=== PATIENT | female | born 1950 | race Asian ===

== ENCOUNTER 2020-01-29 12:20 | Emergency (ER) | payer MEDICARE ==
[2020-01-29] MEDS ORDERED: Sodium Chloride 0.9% 10 ML Syringe FLUSH PRN (12:45)
--- NOTE | 2020-01-29 12:45 | EDM.PDOC ---
ED HPI GENERAL MEDICAL PROBLEM - General Chief Complaint: Respiratory Problem Stated Complaint: [facility] Time Seen by Provider: 01/29/20 12:40 Source of Information: Reports: Patient History Limitations: Reports: No Limitations, Language Barrier (Some mild language barrier. Patient is of [place] or [place] descent and has a hard time understanding Setswana. She also appears to be moderately hearing impaired.) - History of Present Illness INITIAL COMMENTS - FREE TEXT/NARRATIVE: 69-year-old female presents to the ED per [place] [facility]. The history primarily provided by the cage maker machine. Patient apparently was outside of [facility] in her vehicle when she is developed sudden onset of severe dyspnea. She called for help from [facility] and they called the ambulance. Paramedics identified her O2 sats were only 57% upon their arrival but the patient is very cool extremities. She was placed on CPAP at 12 mm of PEEP. He was changed to BiPAP in the ED by triage nurse. She is satting at 98 --100% she does have decreased air entry to both lower lung lo but good air entry to both anterior upper lobes no evidence clinically of a pneumothorax. Few crackles appreciated in the left lung base. She has a bit of a bowl neck and therefore no obvious JVD. Patient is alert and able to speak through her mask. Pressure initially is elevated at 211/71. We will monitor this before aggressively treating. Questioning whether she may be acute pulmonary edema. She has no fever to suggest COVID illness. She apparently felt well up until this morning. She will be given Lasix 40 mg IV bolus. Routine labs chest x-ray and ECG to be done. Will include a COVID screen. Onset: Today, Sudden Onset Date: 01/29/20 Onset Time: 10:00 Duration: Minutes:, Getting Worse Location: Reports: Chest (Severe inability to breathe. Significant air hunger reported by paramedics upon arrival.) Quality: Reports: Other (Dyspnea of) Severity: Severe (acute onset) Improves with: Reports: Other (Improved with oxygen and CPAP machine was started in the ambulance.) Worsens with: Reports: Movement Context: Reports: Other. Denies: Activity, Exercise, Lifting, Sick Contact, Trauma Associated Symptoms: Reports: Cough, Loss of Appetite, Malaise, Shortness of Breath, Weakness. Denies: Confusion (Cute onset while sitting in her car at the [facility] this morning.), Chest Pain, cough w sputum (Dry hacking cough.), Diaphoresis, Fever/Chills, Headaches, Nausea/Vomiting, Rash, Seizure, Syncope Treatments BLOCKER AND SEWER: Reports: Other (see below) (No extra medications.) - Related Data Allergies Allergy/AdvReac Type Severity Reaction Status Date / Time No Known Allergies Allergy Verified 01/29/20 12:28 Past Medical History Cardiovascular History: Reports: Heart Failure (Diastolic congestive heart failure ejection fraction is 45% on last evaluation 09/11/2019 in [facility]. Her echocardiogram revealed an improvement in ejection fraction to 55% of the time of discharge after diuresis 09/11/2019), Hypertension, VT Genitourinary History: Reports: Chronic Renal Insuffiency, UTI, Recurrent Musculoskeletal History: Reports: Osteoarthritis Social & Family History - Living Situation & Occupation Living situation: Reports: Occupation: Retired ED ROS GENERAL - Review of Systems Review Of Systems: See Below Constitutional: Reports: Malaise, Weakness, Fatigue, Decreased Appetite. Denies: Fever, Chills, Weight Loss HEENT: Reports: Glasses Respiratory: Reports: Shortness of Breath, Cough. Denies: Wheezing, Pleuritic Chest Pain, Sputum, Hemoptysis (Nonproductive) Cardiovascular: Reports: Blood Pressure Problem, Dyspnea on Exertion (Always has a little bit of edema around the ankles.), Edema, Palpitations. Denies: Chest Pain, Claudication (Neck severe hypertension primarily systolic), Lightheadedness, Orthopnea Endocrine: Reports: Fatigue (Occasional palpitations) GI/Abdominal: Reports: Constipation : Reports: Frequency (Problems with constipation.), Incontinence, Urgency, Other (GEN stress components.) Musculoskeletal: Reports: Joint Pain (Arthritic changes knees hips neck and L- spine.) Skin: Reports: No Symptoms Neurological: Reports: No Symptoms Psychiatric: Reports: No Symptoms Hematologic/Lymphatic: Reports: No Symptoms Immunologic: Reports: No Symptoms ED EXAM, GENERAL - Physical Exam Exam: See Below Exam Limited By: Other (She was able to provide a history even through the CPAP mask. Temperature was 35.8 heart rate was 88 and sinus. Respiratory of 24/min with O2 sats of 100% on CPAP machine at 25/12mm of mercury. Is taken off the CPAP machine since her O2 sats 100% placed on nasal cannula at 6 L/min and she did well with this.) General Appearance: Alert, WD/WN, Moderate Distress, Other (BP elevated at 227/7990 severe systolic hypertension likely due to the respiratory distress and the need for ambulance transfer to the hospital.) Eye Exam: Bilateral Eye: Normal Inspection, Periorbital Changes Throat/Mouth: Other Head: Atraumatic, Normocephalic (Is mildly dry and coated.) Neck: Normal Inspection, Full Range of Motion, Limited Range of Motion, Tender Lateral, Other (She has crepitus on lateral rotation and tenderness along the paraspinal my spine bilaterally on examination.). No: Carotid Bruit, Lymphadenopathy (L), Lymphadenopathy (R) Respiratory/Chest: Respiratory Distress (Moderate respiratory distress 20 to 24/min tachypnea. O2 sats when paramedics arrived were reportedly 57 which I do not believe is accurate likely due to the patient's hands being very cold.), Decreased Breath Sounds (No expiratory wheeze.), Rales ( Breath sounds to both posterior lung lo by 25%. Rales appreciated left base difficult to hear due to the CPAP machine.), Wheezing. No: Normal Breath Sounds Cardiovascular: Regular Rate, Rhythm, No Murmur, No Rub. No: Normal Peripheral Pulses, No Edema, No Gallop Peripheral Pulses: 1+: Posterior Tibial (L), Posterior Tibial (R), Dorsalis Pedis (L), Dorsalis Pedis (R) GI/Abdominal: Normal Bowel Sounds, No Organomegaly, No Mass, Pelvis Stable, Distended (Tympany to percussion in the epigastrium compared with aerophagia. She reports that her only surgeries have been cholecystectomy and suspect appendectomy at the same time.). No: Guarding, Rigid, Rebound, Tender Back Exam: Decreased Range of Motion, Vertebral Tenderness (Paraspinal muscles and vertebral tenderness lateral to lumbar spine bilaterally.). No: CVA Tenderness (L), CVA Tenderness (R) Extremities: Pedal Edema Neurological: Alert (Pedal edema over the ankles.), Oriented, CN II-XII Intact, Normal Cognition Psychiatric: Anxious Skin Exam: Warm, Dry, Intact, Normal Color, No Rash EKG INTERPRETATION EKG Date: 01/29/20 Time: 12:35 Rhythm: NSR Rate (Beats/Min): 84 Walters: Normal P-Wave: Enlarged QRS: LBBB (Incomplete left bundle branch block pattern.) ST-T: Normal EKG Interpretation Comments: Abnormal ECG. No signs of ischemia Course - Vital Signs Last Recorded V/S: Last Vital Signs Temp 35.8 C L 01/29/20 12:25 Pulse 88 01/29/20 12:25 Resp 19 01/29/20 12:25 BP 227/79 H 01/29/20 12:25 Pulse Ox 100 01/29/20 13:12 - Orders/Labs/Meds Orders: Active Orders 24 hr Category Date Time Status EKG Documentation Completion [RC] STAT Care 01/29/20 12:41 Active Oxygen Therapy [RC] ASDIRECTED Care 01/29/20 12:42 Active Peripheral IV Care [RC] . DIRECTED Care 01/29/20 12:45 Active Chest 1V Frontal [CR] Stat Exams 01/29/20 12:41 Taken CULTURE URINE [RM] Routine Lab 01/29/20 13:04 Received Sodium Chloride 0.9% [Saline Flush] Med 01/29/20 12:45 Active 10 ml FLUSH ASDIRECTED PRN Peripheral IV Insertion Adult [OM.PC] Stat Oth 01/29/20 12:45 Ordered Medication Orders Sodium Chloride (Saline Flush) 10 ml FLUSH ASDIRECTED PRN PRN Reason: Keep Vein Open Last Admin: 01/29/20 13:01 Dose: 10 ml Documented by: RUPERT Labs: Laboratory Tests 01/29/20 01/29/20 01/29/20 Range/Units 12:55 13:00 13:04 WBC (3.98-10.04) K/mm3 RBC (3.98-5.22) M/mm3 Hgb (11.2-15.7) gm/dl Hct (34.1-44.9) % MCV (79.4-94.8) fl MCH (25.6-32.2) pg MCHC (32.2-35.5) g/dl RDW Std Deviation (36.4-46.3) fL Plt Count (182-369) K/mm3 MPV (9.4-12.3) fl Neut % (Auto) (34.0-71.1) % Lymph % (Auto) (19.3-51.7) % [place] % (Auto) (4.7-12.5) % Eos % (Auto) (0.7-5.8) Baso % (Auto) (0.1-1.2) % Neut # (Auto) (1.56-6.13) K/mm3 Lymph # (Auto) (1.18-3.74) K/mm3 [place] # (Auto) (0.24-0.36) K/mm3 Eos # (Auto) (0.04-0.36) K/mm3 Baso # (Auto) (0.01-0.08) K/mm3 Manual Slide Review PT (9.7-11.7) SECONDS INR APTT (22-31) SECONDS D-Dimer, Quantitative (0.19-0.50) mg/L Puncture Site Lt radial ABG pH 7.33 L (7.35-7.45) ABG pCO2 46.2 H (35.0-45.0) mmHg ABG pO2 122.0 H (80.0-100.0) mmHg ABG HCO3 23.8 (22.0-26.0) meq/L ABG O2 Saturation 98.7 H (96.0-97.0) % ABG Base Excess -1.8 (-2-2.0) Flako Test Positive A-a Gradient 134 mmHg O2 Delivery Device Nasal cannula Oxygen Flow Rate 6.0 FiO2 44.00 (21.00-100.00) % Sodium (136-145) mEq/L Potassium (3.5-5.1) mEq/L Chloride (98-107) mEq/L Carbon Dioxide (21-32) mEq/L Anion Gap (5-15) BUN (7-18) mg/dL Creatinine (0.55-1.02) mg/dL Est Cr Clr Drug Dosing mL/min Estimated GFR (MDRD) (>60) mL/min BUN/Creatinine Ratio (14-18) Glucose (83-115) mg/dL Calcium (8.5-10.1) mg/dL Magnesium (1.8-2.4) mg/dl Ferritin (8-252) ng/ml Total Bilirubin (0.2-1.0) mg/dL AST (15-37) U/L ALT (14-59) U/L Alkaline Phosphatase (46-116) U/L Lactate Dehydrogenase (81-234) U/L CK-MB (CK-2) (0-3.6) ng/ml Troponin I (0.00-0.056) ng/mL C-Reactive Protein (<1.0) mg/dL NT-Pro-B Natriuret Pep (0-125) pg/mL Total Protein (6.4-8.2) g/dl Albumin (3.4-5.0) g/dl Globulin gm/dL Albumin/Globulin Ratio (1-2) Urine Color Yellow (Yellow) Urine Appearance Slt cloudy H (Clear) Urine pH 6.0 (5.0-8.0) Ur Specific Assumption > or = 1.030 (1.005-1.030) Urine Protein 2+ H (Negative) Urine Glucose (UA) 2+ H (Negative) Urine Ketones Negative (Negative) Urine Occult Blood Trace-intact H (Negative) Urine Nitrite Negative (Negative) Urine Bilirubin Negative (Negative) Urine Urobilinogen 0.2 (0.2-1.0) Ur Leukocyte Esterase Trace H (Negative) Urine RBC 5-10 H (0-5) /hpf Urine WBC 5-10 H (0-5) /hpf Ur Squamous Epith Cells 0-5 (0-5) /hpf Urine Bacteria Many H (FEW) /hpf Urine Mucus Rare (FEW) /hpf SARS-CoV-2 RNA (JOHN) Negative (NEGATIVE) 01/29/20 01/29/20 01/29/20 Range/Units 14:15 14:15 14:15 WBC 9.64 (3.98-10.04) K/mm3 RBC 4.65 (3.98-5.22) M/mm3 Hgb 14.3 (11.2-15.7) gm/dl Hct 44.1 (34.1-44.9) % MCV 94.8 (79.4-94.8) fl MCH 30.8 (25.6-32.2) pg MCHC 32.4 (32.2-35.5) g/dl RDW Std Deviation 44.9 (36.4-46.3) fL Plt Count 272 (182-369) K/mm3 MPV 9.8 (9.4-12.3) fl Neut % (Auto) 86.4 H (34.0-71.1) % Lymph % (Auto) 9.5 L (19.3-51.7) % [place] % (Auto) 3.4 L (4.7-12.5) % Eos % (Auto) 0.5 L (0.7-5.8) Baso % (Auto) 0.1 (0.1-1.2) % Neut # (Auto) 8.32 H (1.56-6.13) K/mm3 Lymph # (Auto) 0.92 L (1.18-3.74) K/mm3 [place] # (Auto) 0.33 (0.24-0.36) K/mm3 Eos # (Auto) 0.05 (0.04-0.36) K/mm3 Baso # (Auto) 0.01 (0.01-0.08) K/mm3 Manual Slide Review Normal smear PT 11.4 (9.7-11.7) SECONDS INR 1.07 APTT 27 (22-31) SECONDS D-Dimer, Quantitative (0.19-0.50) mg/L Puncture Site ABG pH (7.35-7.45) ABG pCO2 (35.0-45.0) mmHg ABG pO2 (80.0-100.0) mmHg ABG HCO3 (22.0-26.0) meq/L ABG O2 Saturation (96.0-97.0) % ABG Base Excess (-2-2.0) Flako Test A-a Gradient mmHg O2 Delivery Device Oxygen Flow Rate FiO2 (21.00-100.00) % Sodium 141 (136-145) mEq/L Potassium 4.4 (3.5-5.1) mEq/L Chloride 103 (98-107) mEq/L Carbon Dioxide 28 (21-32) mEq/L Anion Gap 14.4 (5-15) BUN 25 H (7-18) mg/dL Creatinine 1.3 H (0.55-1.02) mg/dL Est Cr Clr Drug Dosing 29.95 mL/min Estimated GFR (MDRD) 40 (>60) mL/min BUN/Creatinine Ratio 19.2 H (14-18) Glucose 161 H (83-115) mg/dL Calcium 8.9 (8.5-10.1) mg/dL Magnesium 2.7 H (1.8-2.4) mg/dl Ferritin (8-252) ng/ml Total Bilirubin 0.5 (0.2-1.0) mg/dL AST 41 H (15-37) U/L ALT 34 (14-59) U/L Alkaline Phosphatase 136 H (46-116) U/L Lactate Dehydrogenase 330 H (81-234) U/L CK-MB (CK-2) 2.6 (0-3.6) ng/ml Troponin I 0.096 H* (0.00-0.056) ng/mL C-Reactive Protein 0.2 (<1.0) mg/dL NT-Pro-B Natriuret Pep (0-125) pg/mL Total Protein 7.9 (6.4-8.2) g/dl Albumin 3.9 (3.4-5.0) g/dl Globulin 4.0 gm/dL Albumin/Globulin Ratio 1.0 (1-2) Urine Color (Yellow) Urine Appearance (Clear) Urine pH (5.0-8.0) Ur Specific Assumption (1.005-1.030) Urine Protein (Negative) Urine Glucose (UA) (Negative) Urine Ketones (Negative) Urine Occult Blood (Negative) Urine Nitrite (Negative) Urine Bilirubin (Negative) Urine Urobilinogen (0.2-1.0) Ur Leukocyte Esterase (Negative) Urine RBC (0-5) /hpf Urine WBC (0-5) /hpf Ur Squamous Epith Cells (0-5) /hpf Urine Bacteria (FEW) /hpf Urine Mucus (FEW) /hpf SARS-CoV-2 RNA (JOHN) (NEGATIVE) 01/29/20 01/29/20 01/29/20 Range/Units 14:15 14:15 14:15 WBC (3.98-10.04) K/mm3 RBC (3.98-5.22) M/mm3 Hgb (11.2-15.7) gm/dl Hct (34.1-44.9) % MCV (79.4-94.8) fl MCH (25.6-32.2) pg MCHC (32.2-35.5) g/dl RDW Std Deviation (36.4-46.3) fL Plt Count (182-369) K/mm3 MPV (9.4-12.3) fl Neut % (Auto) (34.0-71.1) % Lymph % (Auto) (19.3-51.7) % [place] % (Auto) (4.7-12.5) % Eos % (Auto) (0.7-5.8) Baso % (Auto) (0.1-1.2) % Neut # (Auto) (1.56-6.13) K/mm3 Lymph # (Auto) (1.18-3.74) K/mm3 [place] # (Auto) (0.24-0.36) K/mm3 Eos # (Auto) (0.04-0.36) K/mm3 Baso # (Auto) (0.01-0.08) K/mm3 Manual Slide Review PT (9.7-11.7) SECONDS INR APTT (22-31) SECONDS D-Dimer, Quantitative 2.05 H (0.19-0.50) mg/L Puncture Site ABG pH (7.35-7.45) ABG pCO2 (35.0-45.0) mmHg ABG pO2 (80.0-100.0) mmHg ABG HCO3 (22.0-26.0) meq/L ABG O2 Saturation (96.0-97.0) % ABG Base Excess (-2-2.0) Flako Test A-a Gradient mmHg O2 Delivery Device Oxygen Flow Rate FiO2 (21.00-100.00) % Sodium (136-145) mEq/L Potassium (3.5-5.1) mEq/L Chloride (98-107) mEq/L Carbon Dioxide (21-32) mEq/L Anion Gap (5-15) BUN (7-18) mg/dL Creatinine (0.55-1.02) mg/dL Est Cr Clr Drug Dosing mL/min Estimated GFR (MDRD) (>60) mL/min BUN/Creatinine Ratio (14-18) Glucose (83-115) mg/dL Calcium (8.5-10.1) mg/dL Magnesium (1.8-2.4) mg/dl Ferritin 145 (8-252) ng/ml Total Bilirubin (0.2-1.0) mg/dL AST (15-37) U/L ALT (14-59) U/L Alkaline Phosphatase (46-116) U/L Lactate Dehydrogenase (81-234) U/L CK-MB (CK-2) (0-3.6) ng/ml Troponin I (0.00-0.056) ng/mL C-Reactive Protein (<1.0) mg/dL NT-Pro-B Natriuret Pep 1774 H (0-125) pg/mL Total Protein (6.4-8.2) g/dl Albumin (3.4-5.0) g/dl Globulin gm/dL Albumin/Globulin Ratio (1-2) Urine Color (Yellow) Urine Appearance (Clear) Urine pH (5.0-8.0) Ur Specific [place] (1.005-1.030) Urine Protein (Negative) Urine Glucose (UA) (Negative) Urine Ketones (Negative) Urine Occult Blood (Negative) Urine Nitrite (Negative) Urine Bilirubin (Negative) Urine Urobilinogen (0.2-1.0) Ur Leukocyte Esterase (Negative) Urine RBC (0-5) /hpf Urine WBC (0-5) /hpf Ur Squamous Epith Cells (0-5) /hpf Urine Bacteria (FEW) /hpf Urine Mucus (FEW) /hpf SARS-CoV-2 RNA (JOHN) (NEGATIVE) Meds: Medications Generic Name Dose Route Start Last Admin Trade Name Freq PRN Reason Stop Dose Admin Sodium Chloride 10 ml 01/29/20 12:45 01/29/20 13:01 Saline Flush FLUSH 10 ml ASDIRECTED PRN Administration Keep Vein Open Discontinued Medications Generic Name Dose Route Start Last Admin Trade Name Freq PRN Reason Stop Dose Admin Furosemide 40 mg 01/29/20 12:50 01/29/20 12:57 Lasix IVPUSH 01/29/20 12:51 40 mg NOW ONE Administration Hydralazine HCl 10 mg 01/29/20 14:16 01/29/20 14:25 Apresoline IVPUSH 01/29/20 14:17 10 mg ONETIME ONE Administration - Radiology Interpretation Free Text/Narrative:: 69-year-old female presents to the ED per [place] [facility] after developing acute respiratory distress while seated in her vehicle outside [facility]. The reason for being in the car outside [facility] is unclear at this time. Paramedics established that her O2 sats were 57% by pulse oximetry. They felt that she was in acute respiratory distress most likely due to heart failure. They placed her on a CPAP machine with pressures of 25/12 in route to the hospital and she arrived on CPAP. On my evaluation her O2 sats were 100% on CPAP. Lungs reveal a few crackles left base. Occasional expiratory wheeze. No obvious JVD but she has a thickened or bulging neck. Plan we will wean her down to 6 L per nasal cannula and see how she does and then wean her slowly down on her oxygen requirements. She has a history of pulmonary edema. History of chronic congestive failure. Often this is aggravated by urinary tract infection or fever. She will be tested for COVID-19. She will have a stat chest x-ray. She will be given Lasix 40 mg IV. Apparently she takes 40 mg in the morning and 20 mg in the p.m. at this time. - Re-Assessments/Exams Free Text/Narrative Re-Assessment/Exam: 01/29/20 13:28: Has tolerated weaning from CPAP down to oxygen at 6 L/min by nasal cannula. Subsequently able to wean her down to 3 L/min to maintain O2 sats of 92 to 96%. Her blood pressure remains markedly elevated systolically. It is on average been around 205 to 215. Diastolically pressures have been in the 70s. She still is quite anxious. If blood pressure remains elevated systolically I will give her hydralazine 10 mg IV. Chest x-ray which was done immediately after the patient came into the ED reveals likely bilateral pulmonary fibrosis involving the lung bases. There does appear to be a diffuse vascular congestion pattern with prominence of both pulmonary arteries. There are no pleural effusions. There is no pneumothorax. Moderate cardiomegaly appreciated. 01/29/20 14:29 White count is normal at 9.64. Differential is 86% neutrophils. Hemoglobin 14.3 with hematocrit of 44.1. Platelet count 272,000. The smear does not reveal any sign of bands cells. ABGs revealed a pH of 7.33 with a PCO2 of 46.2 indicating some degree of respiratory failure. PO2 was 122. This was done on 6 L/min by nasal cannula at which time she was weaned down to 3 L/min. O2 sats were 99%. The urinalysis is slightly cloudy with 2+ protein 2+ glucose and trace occult blood. Leukocyte esterase was trace. There is 5-10 RBCs and 5-10 WBC`'s per high-power field with many bacteria reported. Urine culture will be ordered. She desaturates down to 84% when she gets up to void. Otherwise she has been tolerating oxygen at 3 L with maintained O2 sats in the mid 90s. She has voided once of 300-400 mils of urine. 01/29/20 15:49 is feeling much improved. She has been weaned off her oxygen and is currently saturating 80 to 93%. She is much improved and in no further respiratory distress. On exam she has a few crackles in the right base but no thing on the left at this time. She is requesting to go home. She will be advised to take Lasix 40 mg per her evening dose instead of 20 mg of Lasix tonight to prevent further reoccurrence of heart failure. She drank a Dr. Pepper on the way down from my not and feels that this may have caused some palpitations. She was not found to have any arrhythmia on initial assessment. It is more likely that she did not take full doses of her Lasix over the last day or so. 01/29/20 15:59 Sodium was 141 with a potassium of 4.4. Chloride of 103 with a bicarb of 28. Anion gap is 14.4. BUN is mildly elevated at 25 with a creatinine of 1.3 GFR is reported at 40. BUN/creatinine ratio slightly elevated 19.2. Glucose 161 with a calcium at 8.9. Magnesium is elevated at 2.7. Serum ferritin is normal at 145. Bilirubin is 0.5 AST slightly elevated at 41 normal ALT at 34 alk phos is mildly elevated 136. LDH is mildly elevated at 330. CK- MB fraction is 2.6 with an troponin I of 0.096 I slightly elevated due to acute congestive failure. BNP is 1774. C-reactive protein 0.2. Total protein 7.9 with an albumin fraction of 3.9. He is feeling much improved. She is requesting to leave the ED. her O2 sats are maintained at 92 to 94% on room air. She states she is feeling much improved. Examination reveals a few crackles in the right base. Patient vies to take 40 mg of Lasix at suppertime tonight. She usually takes 40 in the morning and 20 in the p.m. She advised to follow-up with her primary care physician returns to [place]. Departure - Departure Time of Disposition: 15:59 Disposition: Home, Self-Care 01 Condition: Fair Clinical Impression: Acute pulmonary edema with congestive heart failure - Discharge Information *PRESCRIPTION DRUG MONITORING PROGRAM REVIEWED*: Not Applicable *COPY OF PRESCRIPTION DRUG MONITORING REPORT IN PATIENT RAMBO: Not Applicable Referrals: PCP,Not In Area [Primary Care Provider] - Forms: ED Department Discharge Additional Instructions: Evaluation in the emergency room today in regards to acute onset of shortness of breath and requirement for oxygen supplementation. You were placed on CPAP machine to help you breathe by ferry terminal supervisor staff. You were weaned off this machine and placed on oxygen by nasal cannula starting at 6 L/min and we were able to wean off of the oxygen by the time of your discharge. Chest x-ray and labs reveal evidence of acute pulmonary edema which means your lungs filled up with fluid due to the heart not wanting to contract normally. This is called flash pulmonary edema which means it occurs very quickly without warning of onset. You need to take your Lasix 40 mg in the morning and 20 mg in the p.m. as per your normal. Suggest taking a 40 mg tablet of Lasix tonight at suppertime to help prevent further fluid accumulation in your lungs. Must take all of your other medications as prescribed. Suggest follow-up with your doctor in my not when you get back home. Sepsis Event Note (ED) - Evaluation Sepsis Screening Result: No Definite Risk - Focused Exam Vital Signs: Vital Signs Temp Pulse Resp BP Pulse Ox Pulse Ox 01/29/20 13:12 100 01/29/20 12:25 35.8 C L 88 19 227/79 H 100 - My Orders Last 24 Hours: My Active Orders 01/29/20 12:41 EKG Documentation Completion [RC] STAT Chest 1V Frontal [CR] Stat 01/29/20 12:42 Oxygen Therapy [RC] ASDIRECTED 01/29/20 12:45 Peripheral IV Care [RC] . DIRECTED Sodium Chloride 0.9% [Saline Flush] 10 ml FLUSH ASDIRECTED PRN Peripheral IV Insertion Adult [OM.PC] Stat 01/29/20 13:04 CULTURE URINE [RM] Routine - Assessment/Plan Last 24 Hours: My Active Orders 01/29/20 12:41 EKG Documentation Completion [RC] STAT Chest 1V Frontal [CR] Stat 01/29/20 12:42 Oxygen Therapy [RC] ASDIRECTED 01/29/20 12:45 Peripheral IV Care [RC] . DIRECTED Sodium Chloride 0.9% [Saline Flush] 10 ml FLUSH ASDIRECTED PRN Peripheral IV Insertion Adult [OM.PC] Stat 01/29/20 13:04 CULTURE URINE [RM] Routine
[2020-01-29] MEDS ORDERED: Furosemide 40 MG/4 ML VIAL IVPUSH ONE (12:50)
[2020-01-29] MEDS ORDERED: hydrALAZINE 20 MG/ML SDV IVPUSH ONE (14:16)
[2020-01-30] MEDS ORDERED: Furosemide 40 MG/4 ML VIAL IVPUSH SCH (09:00)
--- NOTE | 2020-03-07 13:26 | CR ---
PROCEDURE INFORMATION: Exam: XR Chest, 1 View Exam date and time: 01/29/2020 12:53 PM Age: 69 years old Clinical indication: Shortness of breath; Patient HX: Acute onset of severe dyspnea pulmonary edema? TECHNIQUE: Imaging protocol: XR of the chest Views: 1 view. COMPARISON: No relevant prior studies available. FINDINGS: Lungs: There is mild pulmonary congestion and trace edema. Pleural space: Unremarkable. No pleural effusion. No pneumothorax. Heart/Mediastinum: There is cardiomegaly. Vasculature: The aorta is atherosclerotic. Bones/joints: Unremarkable. IMPRESSION: Mild CHF. Thank you for allowing us to participate in the care of your patient. Dictated and Authenticated by: Angelito Salcedo MD 03/07/2020 11:59 AM Central Time ([place] & [place]) CRIS
== END 2020-01-29 16:15 | disposition home or self-care (01) ==
LOC: JD.ED 12:20
DX: I13.0 Hypertensive heart and chronic kidney disease with heart failure and stage 1 through stage 4 chronic kidney disease, or unspecified chronic kidney disease (principal); I50.1 Left ventricular failure, unspecified; N18.9 Chronic kidney disease, unspecified; Z20.828 Contact with and (suspected) exposure to other viral communicable diseases; R79.89 Other specified abnormal findings of blood chemistry; R74.02 Elevation of levels of lactic acid dehydrogenase [LDH]; R94.5 Abnormal results of liver function studies; I25.2 Old myocardial infarction
CPT/HCPCS: 36415; 36600; 71045; 80053; 81001; 82553; 82728; 82803; 83615; 83735; 83880; 84484; 85025; 85379; 85610; 85730; 86140; 87086; 87088; 87186; 93005; 96374; 96375; 99285; J0360; J1940; U0002; 93010; 99284